=== PATIENT | female | born 1935 | race Caucasian/White ===

== ENCOUNTER 2017-05-16 07:57 | Emergency (ER) | payer OTHER ==
[~2017-05-16] VITALS: Ht 152.4 cm; Wt 61.2 kg
--- NOTE | ~2017-05-16 | EKG ---
[facility] [place] [address] ELECTROCARDIOGRAM REPORT Name: MAGALYRONNELLJaJORDYN Room #: REG Edith#: [id number] Admission: 05/16/17 Attend Phys: Discharge: Date of : 35 Report #: [id number] THIS REPORT FOR: //name// [facility] ED Test Date: 2017-05-16 Test Time: 08:21:46 Pat Name: JORDYN LOU Department: Room: Gender: F [employer]: KF : 1935 Requested By: Chang Morrison Order Number: [id number] MD: Jose Alfredo Pedraza Measurements Intervals [place] Rate: 75 P: 144 [place]: 76 QRS: -62 QRSD: 165 T: 117 QT: 401 QTc: 448 Interpretive Statements Ventricular-paced rhythm No further analysis attempted due to paced rhythm Baseline wander in lead(s) V6 No previous ECG available for comparison Electronically Signed On 05-16-2017 10:39:18 CDT by Jose Alfredo Pedraza [email or web address] <ELECTRONICALLY SIGNED> By: Jose Alfredo Pedraza MD, [facility] 05/16/17 1039 0821 0 Jose Alfredo Pedraza MD, FACC /EPI
[2017-05-16 09:17] LABS: ABSOLUTE NEUTROPHILS 4.9 thou/uL (1.4-8.2); BASOPHILS 0.8 % (0.0-2.0); EOSINOPHILS 7.4 % (0.0-3.0); HEMATOCRIT 39.8 % (37.0-47.0); HEMOGLOBIN 12.9 gm/dL (12.0-15.0); LYMPHOCYTES 20.8 % (24.0-44.0); MCH 27.5 pg (26.0-34.0); MCHC 32.4 g/dL (28.0-37.0); MCV 84.7 fL (80.0-100.0); PLATELET COUNT 197 thou/uL (150-400); RDW 16.3 % (10.5-14.5)
[2017-05-16 09:30] LABS: ANION GAP 8 mmol/L (7-16); APTT 26.3 Seconds (24.5-32.8); BUN 18 mg/dL (7-18); CALCIUM 10.1 mg/dL (8.5-10.1); CHLORIDE 104 mmol/L (98-107); CO2 25 mmol/L (21-32); CREATININE 1.1 mg/dL (0.6-1.0); GLUCOSE 120 mg/dL (74-106); INR 1.1; POTASSIUM 5.4 mmol/L (3.5-5.1); SODIUM 137 mmol/L (136-145)
[2017-05-16 09:38] LABS: ALBUMIN 3.4 g/dL (3.4-5.0); SGOT 31 U/L (15-37); SGPT 20 U/L (30-65); TOTAL BILIRUBIN 0.4 mg/dL (<0.1-1.0); TOTAL PROTEIN 6.9 g/dL (6.4-8.2); TROPONIN-I < 0.04 ng/mL (<0.06)
[2017-05-16 09:55] LABS: URINE BILIRUBIN NEGATIVE (Negative); URINE BLOOD TRACE (Negative); URINE CLARITY CLOUDY; URINE COLOR YELLOW; URINE GLUCOSE-RANDOM* NEGATIVE (Negative); URINE KETONES NEGATIVE (Negative); URINE LEUKOCYTES-REFLEX 2+ (Negative); URINE NITRITE-REFLEX POSITIVE (Negative); URINE PROTEIN (DIPSTICK) 1+ (Negative); URINE SPECIFIC GRAVITY 1.015 (1.005-1.035); URINE UROBILINOGEN 0.2 E.U./dl (0.2-1.0)
[2017-05-16] MEDS ORDERED: ARICEPT 5 MG TAB5 MG PO (10:00)
[2017-05-16] MEDS ORDERED: LASIX 20 MG TAB20 MG PO (10:00)
[2017-05-16] MEDS ORDERED: DIGOXIN125 MCG PO (10:00)
[2017-05-16] MEDS ORDERED: NEURONTIN 300300 M1 PO (10:01)
[2017-05-16] MEDS ORDERED: AMARYL2 MG PO (10:01)
[2017-05-16] MEDS ORDERED: METFORMIN HCL1000 MG PO (10:02)
[2017-05-16] MEDS ORDERED: LISINOPRIL5 MG PO (10:02)
[2017-05-16] MEDS ORDERED: PROTONIX40 M1 PO (10:03)
[2017-05-16] MEDS ORDERED: ALDACTONE25 MG PO (10:03)
[2017-05-16] MEDS ORDERED: TOPROL XL25 MG PO (10:03)
[2017-05-16] MEDS ORDERED: ATIVAN0.5 MG PO (10:04)
[2017-05-16] MEDS ORDERED: SENOKOT-S TABL1 EACH PO (10:05)
[2017-05-16 10:06] LABS: BACTERIA-REFLEX >30 Many /HPF (None Seen); CASTS None Seen /LPF (None Seen); SQUAMOUS 0-3 Few /LPF (0-3)
[2017-05-16 10:07] LABS: CRYSTALS None Seen /LPF (None Seen); URINE RBC None Seen /HPF (0-2); URINE WBC-REFLEX >25 Many /HPF (0-5)
[2017-05-16] MEDS ORDERED: KEFLEX500 M1 PO (10:18)
[2017-05-16 11:26] VITALS: BP 106/79
== END 2017-05-16 12:10 ==
LOC: ER 07:57
PROVIDERS: Emergency Medicine
DX: S09.90XA Unspecified injury of head, initial encounter (principal); N39.0 Urinary tract infection, site not specified; E87.5 Hyperkalemia; Z95.0 Presence of cardiac pacemaker; Z88.0 Allergy status to penicillin; W19.XXXA Unspecified fall, initial encounter; Y93.89 Activity, other specified; Y92.89 Other specified places as the place of occurrence of the external cause; Y99.8 Other external cause status